=== PATIENT | female | born 1985 | race African-American/Black ===

== ENCOUNTER 2016-10-01 09:10 | Emergency (ER) | payer OTHER ==
[2016-10-01 11:29] VITALS: BP 120/64
== END 2016-10-01 11:30 | disposition home or self-care (01) ==
LOC: ED 09:10
DX: S93.401A Sprain of unspecified ligament of right ankle, initial encounter (principal); S93.402A Sprain of unspecified ligament of left ankle, initial encounter; S00.83XA Contusion of other part of head, initial encounter; S00.511A Abrasion of lip, initial encounter; E03.9 Hypothyroidism, unspecified; A60.00 Herpesviral infection of urogenital system, unspecified; Z86.73 Personal history of transient ischemic attack (TIA), and cerebral infarction without residual deficits; V49.50XA Passenger injured in collision with unspecified motor vehicles in traffic accident, initial encounter; W22.10XA Striking against or struck by unspecified automobile airbag, initial encounter; Y93.89 Activity, other specified; Y92.89 Other specified places as the place of occurrence of the external cause; Y99.8 Other external cause status

== ENCOUNTER 2017-04-20 21:29 | Emergency (ER) | payer OTHER ==
[2017-04-20 22:29] VITALS: BP 112/72
== END 2017-04-20 22:29 | disposition home or self-care (01) ==
LOC: ED 21:29
DX: S46.812A Strain of other muscles, fascia and tendons at shoulder and upper arm level, left arm, initial encounter (principal); V43.52XA Car driver injured in collision with other type car in traffic accident, initial encounter; Y93.19 Activity, other involving water and watercraft; Y92.488 Other paved roadways as the place of occurrence of the external cause; Y99.8 Other external cause status; J45.909 Unspecified asthma, uncomplicated
CPT/HCPCS: J1885

== ENCOUNTER 2017-06-29 14:59 | Emergency (ER) | payer OTHER ==
[~2017-06-29] VITALS: Ht 167.6 cm; Wt 81.6 kg
[2017-06-29 16:06] VITALS: Ht 167.6 cm; Wt 81.6 kg
[2017-06-29 20:09] VITALS: BP 123/77
== END 2017-06-29 20:09 | disposition home or self-care (01) ==
LOC: ED 14:59
DX: J11.1 Influenza due to unidentified influenza virus with other respiratory manifestations (principal); R20.2 Paresthesia of skin; J45.909 Unspecified asthma, uncomplicated; E78.00 Pure hypercholesterolemia, unspecified
CPT/HCPCS: 87804

== ENCOUNTER 2018-03-13 13:58 | Emergency (ER) | payer OTHER ==
[~2018-03-13] VITALS: Ht 170.2 cm; Wt 79.4 kg
[2018-03-13 14:18] VITALS: Ht 170.2 cm; Wt 79.4 kg
[2018-03-13 15:30] VITALS: BP 106/68
== END 2018-03-13 15:30 | disposition home or self-care (01) ==
LOC: ED 13:58
DX: B34.9 Viral infection, unspecified (principal); J45.909 Unspecified asthma, uncomplicated; Z86.73 Personal history of transient ischemic attack (TIA), and cerebral infarction without residual deficits; E78.00 Pure hypercholesterolemia, unspecified

== ENCOUNTER 2018-12-21 12:55 | Emergency (ER) | payer OTHER ==
[~2018-12-21] VITALS: Ht 170.2 cm; Wt 79.8 kg
[2018-12-21 13:00] VITALS: Ht 170.2 cm; Wt 79.8 kg
[2018-12-21 14:53] VITALS: BP 117/68
== END 2018-12-21 14:53 | disposition home or self-care (01) ==
LOC: ED 12:55
DX: R11.2 Nausea with vomiting, unspecified (principal); R19.7 Diarrhea, unspecified; J45.909 Unspecified asthma, uncomplicated; Z86.73 Personal history of transient ischemic attack (TIA), and cerebral infarction without residual deficits
CPT/HCPCS: J1885

== ENCOUNTER 2019-04-30 22:02 | Emergency (ER) | payer OTHER ==
[~2019-04-30] VITALS: Ht 172.7 cm; Wt 79.4 kg
[2019-04-30 22:21] VITALS: Ht 172.7 cm; Wt 79.4 kg
[2019-05-01 01:14] VITALS: BP 122/71
[2019-05-01] MEDS ORDERED: ASPIR 8181 MG (18:21)
[2019-05-01] MEDS ORDERED: LIPI10 (18:21)
[2019-05-01] MEDS ORDERED: TOPROL XL25 MG (18:24)
== END 2019-05-01 01:14 | disposition home or self-care (01) ==
LOC: ED 22:02
DX: K61.1 Rectal abscess (principal)
CPT/HCPCS: J2001

== ENCOUNTER 2019-05-01 14:16 | Inpatient (IN) | payer OTHER ==
[~2019-05-01] VITALS: Ht 170.2 cm; Wt 79.0 kg
[2019-05-01 14:46] VITALS: Ht 170.2 cm; Wt 79.0 kg
[2019-05-01 17:44] LABS: BASOPHIL % 0.2 % (0-2); PLATELET COUNT 244 x10^3mcL (130-400); RED CELL DISTRIBUTION WIDTH 13.4 % (11.5-14.5)
[2019-05-01 17:59] LABS: microscopic required? YES; urine erythrocyte 1+ (NEGATIVE)
[2019-05-01 18:08] LABS: CALCIUM 8.9 mg/dL (8.5-10.1); CARBON DIOXIDE 30.9 mmol/L (21-32); CHLORIDE SERUM 101 mmol/L (98-107); CREATININE SERUM 0.6 mg/dL (0.6-1.0); GFR1 > 60 mL/min; GLUCOSE SERUM 91 mg/dL (74-106); POTASSIUM SERUM 3.5 mmol/L (3.5-5.1); SODIUM SERUM 137 mmol/L (136-145)
[2019-05-01 18:15] LABS: CK-MB < 0.5 ng/mL (0-3.6); CREATINE KINASE 61 U/L (26-192); FREE T4 1.26 ng/dL (0.76-1.46); FREE THYROXINE INDEX 3.1 ug/dL (1.4-4.5); T4(THYROXINE) 9.1 ug/dL (4.7-13.3)
[2019-05-01] MEDS ORDERED: ASPIR 8181 MG (18:21)
[2019-05-01] MEDS ORDERED: LIPI10 (18:21)
[2019-05-01] MEDS ORDERED: TOPROL XL25 MG (18:24)
[2019-05-01 18:25] LABS: ALBUMIN 3.6 g/dL (3.4-5.0); ALKALINE PHOSPHATASE 98 U/L (46-116); ALT/SGPT 11 U/L (14-59); AST/SGOT 11 U/L (15-37); BILIRUBIN TOTAL 0.64 mg/dL (0.20-1.00); C REACTIVE PROTEIN 7.2 mg/dL (<=0.9)
[2019-05-01 18:27] LABS: TOTAL PROTEIN, SERUM 8.7 g/dL (6.4-8.2)
[2019-05-01 18:29] LABS: T3 TOTAL 0.94 ng/mL
[2019-05-01 18:32] LABS: ERYTHROCYTE SED RATE 52 mm/hr (0-20)
[2019-05-01 19:36] VITALS: BP 118/64
[2019-05-02 04:57] VITALS: BP 98/52
[2019-05-02 07:10] LABS: BASOPHIL % 0.3 % (0-2); PLATELET COUNT 203 x10^3mcL (130-400)
[2019-05-02 07:13] LABS: CALCIUM 8.2 mg/dL (8.5-10.1); CHLORIDE SERUM 103 mmol/L (98-107); CREATININE SERUM 0.7 mg/dL (0.6-1.0); GFR1 > 60 mL/min; GLUCOSE SERUM 99 mg/dL (74-106); POTASSIUM SERUM 3.3 mmol/L (3.5-5.1); SODIUM SERUM 138 mmol/L (136-145)
[2019-05-02 07:39] VITALS: BP 95/51
[2019-05-02 16:41] VITALS: BP 111/43
[2019-05-02 21:17] VITALS: BP 106/55
[2019-05-03 06:00] VITALS: BP 113/64
[2019-05-03 06:29] LABS: BASOPHIL % 0.2 % (0-2); PLATELET COUNT 199 x10^3mcL (130-400); RED CELL DISTRIBUTION WIDTH 13.1 % (11.5-14.5)
[2019-05-03 06:49] LABS: CALCIUM 8.2 mg/dL (8.5-10.1); CHLORIDE SERUM 106 mmol/L (98-107); CREATININE SERUM 0.8 mg/dL (0.6-1.0); GFR1 > 60 mL/min; GLUCOSE SERUM 81 mg/dL (74-106); MAGNESIUM 1.8 mg/dL (1.8-2.4); PHOSPHOROUS 3.1 mg/dL (2.5-4.9); POTASSIUM SERUM 3.9 mmol/L (3.5-5.1); SODIUM SERUM 141 mmol/L (136-145)
[2019-05-03 08:43] VITALS: BP 103/44
[2019-05-03 16:41] VITALS: BP 98/57
[2019-05-03 20:04] VITALS: BP 120/69
[2019-05-04 04:36] VITALS: BP 113/95
[2019-05-04 06:30] LABS: BASOPHIL % 0.2 % (0-2); PLATELET COUNT 213 x10^3mcL (130-400); RED CELL DISTRIBUTION WIDTH 13.3 % (11.5-14.5)
[2019-05-04 06:55] LABS: CALCIUM 8.2 mg/dL (8.5-10.1); CARBON DIOXIDE 27.2 mmol/L (21-32); CHLORIDE SERUM 105 mmol/L (98-107); CREATININE SERUM 0.8 mg/dL (0.6-1.0); GFR1 > 60 mL/min; GLUCOSE SERUM 84 mg/dL (74-106); POTASSIUM SERUM 3.2 mmol/L (3.5-5.1); SODIUM SERUM 141 mmol/L (136-145)
[2019-05-04 07:55] VITALS: BP 130/47
[2019-05-04 17:25] VITALS: BP 113/64
[2019-05-04 19:29] VITALS: BP 105/68; BP 120/72
[2019-05-05 03:37] VITALS: BP 107/54
[2019-05-05 06:32] LABS: CALCIUM 8.6 mg/dL (8.5-10.1); CARBON DIOXIDE 26.4 mmol/L (21-32); CHLORIDE SERUM 106 mmol/L (98-107); CREATININE SERUM 0.8 mg/dL (0.6-1.0); GFR1 > 60 mL/min; GLUCOSE SERUM 85 mg/dL (74-106); POTASSIUM SERUM 3.4 mmol/L (3.5-5.1); SODIUM SERUM 142 mmol/L (136-145)
[2019-05-05 06:47] LABS: BASOPHIL % 0.2 % (0-2); PLATELET COUNT 236 x10^3mcL (130-400); RED CELL DISTRIBUTION WIDTH 13.2 % (11.5-14.5)
[2019-05-05 08:39] VITALS: BP 125/68
[2019-05-05 16:18] VITALS: BP 107/62
[2019-05-05 20:24] VITALS: BP 106/59
[2019-05-06 06:23] VITALS: BP 99/60
[2019-05-06 07:06] LABS: BASOPHIL % 0.2 % (0-2); PLATELET COUNT 240 x10^3mcL (130-400); RED CELL DISTRIBUTION WIDTH 13.2 % (11.5-14.5)
[2019-05-06 07:19] LABS: CALCIUM 8.4 mg/dL (8.5-10.1); CARBON DIOXIDE 28.1 mmol/L (21-32); CHLORIDE SERUM 104 mmol/L (98-107); CREATININE SERUM 1.1 mg/dL (0.6-1.0); GFR1 > 60 mL/min; GLUCOSE SERUM 91 mg/dL (74-106); POTASSIUM SERUM 3.5 mmol/L (3.5-5.1); SODIUM SERUM 141 mmol/L (136-145)
[2019-05-06 08:47] VITALS: BP 99/60
[2019-05-06 09:17] VITALS: BP 97/53
[2019-05-06] MEDS ORDERED: CLEOCIN HCL300 MG PO (10:55)
[2019-05-06] MEDS ORDERED: TRAMADOL HCL50 MG PO (10:57)
[2019-05-06 12:05] VITALS: BP 99/53
== END 2019-05-06 13:26 | disposition home or self-care (01) | DRG 383 ==
LOC: ED 14:16 → MU 18:05
PROVIDERS: Internal Medicine; Specialist; Surgery; ADMIT Internal Medicine
PROC: 0Y910ZZ Drainage of Left Buttock, Open Approach (ICD-10-PCS; principal; 2019-05-02 13:30)
DX: L03.317 Cellulitis of buttock (principal); E78.00 Pure hypercholesterolemia, unspecified; L02.31 Cutaneous abscess of buttock; I10 Essential (primary) hypertension; Z68.27 Body mass index [BMI] 27.0-27.9, adult; Z86.73 Personal history of transient ischemic attack (TIA), and cerebral infarction without residual deficits; Z88.8 Allergy status to other drugs, medicaments and biological substances; J45.909 Unspecified asthma, uncomplicated; E78.5 Hyperlipidemia, unspecified; Z79.82 Long term (current) use of aspirin; E87.6 Hypokalemia
CPT/HCPCS: 84439; G0378; J0690; J1170; J1885; J2001; J2250; J2270; J2405; J2543; J2704; J3010; J3370; J3490; J7030; J7060; J7120; Q0092; Q0163; Q0177

== ENCOUNTER 2019-05-09 19:28 | Emergency (ER) | payer OTHER ==
[~2019-05-09] VITALS: Ht 170.2 cm; Wt 78.5 kg
[~2019-05-09 19:28] MED LIST: ASPIR 8181 MG; CLEOCIN HCL300 MG PO; LIPI10; TOPROL XL25 MG; TRAMADOL HCL50 MG PO
[2019-05-09 20:04] VITALS: Ht 170.2 cm; Wt 78.5 kg
[2019-05-09 21:15] LABS: BASOPHIL % 0.3 % (0-2); PLATELET COUNT 256 x10^3mcL (130-400); RED CELL DISTRIBUTION WIDTH 12.9 % (11.5-14.5)
[2019-05-09 21:23] LABS: CALCIUM 8.6 mg/dL (8.5-10.1); CHLORIDE SERUM 101 mmol/L (98-107); CREATININE SERUM 0.9 mg/dL (0.6-1.0); GFR1 > 60 mL/min; GLUCOSE SERUM 95 mg/dL (74-106); POTASSIUM SERUM 3.5 mmol/L (3.5-5.1); SODIUM SERUM 137 mmol/L (136-145)
[2019-05-09 21:36] LABS: ALKALINE PHOSPHATASE 66 U/L (46-116); ALT/SGPT 17 U/L (14-59); AST/SGOT 17 U/L (15-37); BILIRUBIN TOTAL 0.28 mg/dL (0.20-1.00); C REACTIVE PROTEIN 3.7 mg/dL (<=0.9); TOTAL PROTEIN, SERUM 8.1 g/dL (6.4-8.2)
[2019-05-09 21:37] LABS: CREATINE KINASE 86 U/L (26-192)
[2019-05-09 21:58] LABS: ERYTHROCYTE SED RATE 99 mm/hr (0-20)
[2019-05-09 22:26] LABS: CK-MB < 0.5 ng/mL (0-3.6)
[2019-05-10 00:25] VITALS: BP 99/76
== END 2019-05-10 00:25 | disposition home or self-care (01) ==
LOC: ED 19:28
PROVIDERS: Specialist
DX: R50.9 Fever, unspecified (principal); J45.909 Unspecified asthma, uncomplicated; E78.00 Pure hypercholesterolemia, unspecified; Z98.890 Other specified postprocedural states; Z88.6 Allergy status to analgesic agent; Z88.5 Allergy status to narcotic agent; Z88.1 Allergy status to other antibiotic agents
CPT/HCPCS: 87804; J2543; J7030; Q0092

== ENCOUNTER 2019-06-12 19:40 | Emergency (ER) | payer OTHER ==
[~2019-06-12] VITALS: Ht 167.6 cm; Wt 78.5 kg
[2019-06-12 19:59] VITALS: Ht 167.6 cm; Wt 78.5 kg
[2019-06-12 22:48] VITALS: BP 112/48
== END 2019-06-12 22:48 | disposition home or self-care (01) ==
LOC: ED 19:40
DX: S16.1XXA Strain of muscle, fascia and tendon at neck level, initial encounter (principal); S39.012A Strain of muscle, fascia and tendon of lower back, initial encounter; M54.6 Pain in thoracic spine; J45.909 Unspecified asthma, uncomplicated; E78.00 Pure hypercholesterolemia, unspecified; Z86.73 Personal history of transient ischemic attack (TIA), and cerebral infarction without residual deficits; Z88.6 Allergy status to analgesic agent; Z88.5 Allergy status to narcotic agent; Z88.1 Allergy status to other antibiotic agents; V49.9XXA Car occupant (driver) (passenger) injured in unspecified traffic accident, initial encounter; Y93.I9 Activity, other involving external motion; Y92.413 State road as the place of occurrence of the external cause; Y99.8 Other external cause status
CPT/HCPCS: J2270